=== PATIENT | female | born 1955 | race Caucasian/White ===

== ENCOUNTER 2017-06-06 13:55 | Emergency (ER) | payer BC ==
[~2017-06-06] VITALS: Ht 160 cm; Wt 75.3 kg
[~2017-06-06 13:55] MED LIST: AUGMENTIN500 MG PO; AUGMENTIN875 MG PO; DUONEB3 ML IH; EXFORGE 5/321 TABLET; EXFORGE 5/321 TABLET PO; Flagyl PO; SYMBICORT60 INHALAT; Singulair PO; Vancocin Oral Soluti PO; predniSONE PO
[2017-06-06 15:24] VITALS: BP 148/78
== END 2017-06-06 15:26 | disposition home or self-care (01) ==
LOC: EME 13:55
DX: S61.011A Laceration without foreign body of right thumb without damage to nail, initial encounter (principal); W26.8XXA Contact with other sharp object(s), not elsewhere classified, initial encounter; Z23 Encounter for immunization; J45.909 Unspecified asthma, uncomplicated; Z88.1 Allergy status to other antibiotic agents
CPT/HCPCS: 99281; 99284